=== PATIENT | male | born 1945 | race Caucasian/White ===

== ENCOUNTER → 2021-08-22 | Outpatient (CLI) | payer MEDICARE, OTHER ==
[~2021-08-22] VITALS: Ht 177 cm; Wt 88.0 kg
[~2021-08-22] MED LIST: REGADENOSON 0.4 MG/5 ML SYR (LEXISCAN) IV ONE
[2021-08-22] MEDS: CATHETER FLUSH 10 ML SYR IVP PRN ×2 (07:50→09:24)
[2021-08-22 09:15] VITALS: BP 127/66
--- NOTE | 2021-08-22 11:27 | Cardiology Stress Test Report ---
Stress Test Report Date of Procedure/Referring: Date of Procedure: Aug 22, 2021 PCP Bakari Gonzáles MD Admitting Physician Indications: CP Baseline Heart Rate: 53 Baseline Blood Pressure: Blood Pressure Systolic: 127 Blood Pressure Diastolic: 66 Baseline Vitals Vital Signs Date Time Temp Pulse Resp B/P (MAP) Pulse Ox O2 Delivery O2 Flow Rate FiO2 08/22/21 09:15 53 16 127/66 (86) 97 Room Air Baseline EKG: Baseline EKG: NSR Summary After explaining the procedure to the patient, he signed a consent and then brought to the stress nuclear laboratory. Patient received 0.4 mg Lexiscan for stress test, ECG, heart rate and blood pressure were monitored continuously. Resting and stress dose of radio tracer were injected, imaging was acquired and reviewed in short axis, horizontal long axis and vertical long axis views. TID: 1.16 SSS: 16 SDS: 3 EF: 51 1. Patient tolerated Lexiscan well 2. Decreased uptake involving the whole anterior wall anterior apex and true apex with mild reversibility suggestive of ischemia 3. Normal left ventricular size, hypokinesia of the anterior wall, EF 51% BAKARI GONZÁLES MD Aug 22, 2021 11:27
== END ==
LOC: CARD 08:30
PROVIDERS: ATTEND Internal Medicine Cardiovascular Disease
DX: I49.9 Cardiac arrhythmia, unspecified (principal); I25.10 Atherosclerotic heart disease of native coronary artery without angina pectoris; I10 Essential (primary) hypertension
CPT/HCPCS: 78452; 93017; 93225; 93226; A9502

== ENCOUNTER 2021-09-07 09:00 | Day surgery (SDC) | payer MEDICARE ==
[~2021-09-07] VITALS: Ht 177.8 cm; Wt 97.6 kg
[2021-09-07] VITALS (14 sets, daily range): BP systolic 118–143; BP diastolic 68–97
--- NOTE | 2021-09-07 07:46 | Diagnostic Imaging Report ---
EXAMINATION: Chest radiograph, portable AP view. DATE: 09/07/2021 7:37 AM INDICATION: 76-year-old female, preoperative exam. COMPARISON: None. FINDINGS: Heart size and mediastinal contours are unremarkable. There is no identified pneumothorax. There is no large pleural effusion. There are streaky opacities in the right perihilar region and right midlung. IMPRESSION: 1. Streaky opacities in the right perihilar region of the right midlung which may reflect scarring, atelectasis, and/or infiltrate. Consider CT chest with intravenous contrast for further assessment if comparison radiographs are not able to document stability. Dictated by: Dictated on workstation # [id number]
[2021-09-07 07:53] LABS: BILIRUBIN,URINE NEGATIVE (NEGATIVE); CLARITY,URINE CLEAR; COLOR,URINE YELLOW; GLUCOSE, URINE (UA) NEGATIVE (NEGATIVE); HEMATOCRIT 42 % (40-54); HEMOGLOBIN 13.5 g/dL (13.3-17.7); KETONES,URINE NEGATIVE (NEGATIVE); LEUKOCYTE ESTERASE ,URINE TRACE (NEGATIVE); MEAN CORPUSCULAR HEMOGLOBIN 29 pg (25-34); MEAN CORPUSCULAR HGB CONC 32 g/dL (32-36); MEAN CORPUSCULAR VOLUME 90 fL (80-99); MEAN PLATELET VOLUME 11.6 fL (9.0-12.2); NITRITE,URINE NEGATIVE (NEGATIVE); PLATELET COUNT 192 10^3/uL (130-400); PROTEIN,URINE NEGATIVE (NEGATIVE); WHITE BLOOD COUNT 6.3 10^3/uL (4.3-11.0)
[2021-09-07 08:16] LABS: BILIRUBIN,TOTAL 0.4 MG/DL (0.1-1.0); CALCIUM 9.5 MG/DL (8.5-10.1); CREATININE SERUM 0.76 MG/DL (0.60-1.30); POTASSIUM 4.2 MMOL/L (3.6-5.0); TOTAL PROTEIN 7.2 GM/DL (6.4-8.2)
[2021-09-07 08:24] LABS: INR 1.1 (0.8-1.4); PROTHROMBIN TIME PATIENT 14.5 SEC (12.2-14.7)
[2021-09-07 08:31] LABS: BACTERIA,URINE TRACE /HPF; SQUAMOUS EPITHELIAL CELL,UR 0-2 /HPF; WBC,URINE 0-2 /HPF
[~2021-09-07 09:00] MED LIST changes: +ACET-2650 PO; +ALLO300T2 PO; +APIX5TAB PO; +COLC0.6T59 PO; +DILT240C90 PO; +FEXO180T84 PO; +HEParin (CATH LAB) 2,000 ML IV ONE; +HEParin 1000 UNIT/ML (10ML VIAL) FOR BOLUS ONE; +LEVO125C4 PO; +LIDOCAINE 1% INJ 50 ML (XYLOCAINE) VIAL ONE; +LISI10TA25 PO; +METF-397 PO; +MIDAZOLAM 5 MG/5 ML (VERSED) VIAL ONE; +NITRO DRIP 25000 MCG/D5W 250 ML IV ONE; +NS IV 1000 ML 1,000 ML IV SCH; +NS IV 1000 ML 1,000 ML ONE; -REGADENOSON 0.4 MG/5 ML SYR (LEXISCAN) IV ONE; +ROSU10TA28 PO; +TERA2CAP4 PO; +VERAPAMIL 5 MG/2 ML (CALAN) VIAL IV ONE; +fentaNYL INJ 100 MCG/2 ML AMP ONE
--- NOTE | 2021-09-07 09:15 | Conscious Sedation/ASA ---
Conscious Sedation Pre-Proced Time 09:15 ASA Score 3 For ASA 3 and 4: Consider anesthesia and medical clearance. Also, for patients with a history of failed moderate sedation consider anesthesia. Airway Lungs Heart ASA score ASA 1: a normal healthy patient ASA 2: a patient with a mild systemic disease (mid diabetes, controlled hypertension, obesity x ASA 3: a patient with a severe systemic disease that limits activity (angina, COPD, prior Myocardial infarction) ASA 4: a patient with an incapacitating disease that is a constant threat to life (CHF, renal failure) ASA 5: a moribund patient not expected to survive 24 hrs. (ruptured aneurysm) ASA 6: a declared brain- patient whose organs are being harvested. For emergent operations, add the letter E after the classification Mallampati Classification Grade 3 Sedation Plan Analgesia, Amnesia, Plan communicated to team members, Discussed options with patient/fam, Discussed risks with patient/fam The patient is an appropriate candidate to undergo the planned procedure, sedation, and anesthesia. The patient immediately re-assessed prior to indication. BAKARI GOODWIN MD Sep 07, 2021 09:15
[2021-09-07] MEDS ORDERED: NS IV 1000 ML 1,000 ML IV SCH (09:45)
--- NOTE | 2021-09-07 09:47 | Cardiac Cath Report ---
Cardiac Cath Report Physician (s)/Building Energy Retrofit Technician (s) Physician BAKARI GOODWIN MD Pre-Procedure Diagnosis Pre-Procedure Diagnosis: Coronary artery disease Post-Procedure Note Procedure Start Date: Sep 07, 2021 Name of Procedure: Left heart catheterization Aortic arch angiogram Findings/Procedure Note PROCEDURE NOTE: 76-year-old gentleman with history of hypertension, hyperlipidemia and atrial fibrillation, had an abnormal stress test, scheduled for cardiac catheterization possible PTCA. After explaining the procedure to the patient, all pros and cons were explained, all questions were answered. The patient signed the consent and then he was placed on the cardiac catheterization laboratory. Groin was prepped SL fashion local anesthesia was used. Sheath placed in the right radial artery, Beauty catheter was advanced to the left ventricular cavity, pressure was measured, pullback LV to aorta was done, engaged the right and left coronary system, angiogram was done. Patient has severe multivessel coronary artery disease, I decided to proceed with aortic arch angiogram prior to referring him for evaluation for bypass surgery At the end of the procedure the sheath was removed. Vascular band was used FINDINGS: Hemodynamics LV 115/13, end-diastolic pressure of 13 Aorta 112/54 mean of 76 ANATOMY: Left Main is free of obstructive disease Left Anterior Descending has severe stenosis at the midportion with aneurysmal dilatation then total occlusion of the LAD is getting filled by collaterals from the left and right coronary system. Diagonal artery has severe stenosis Left Circumflex is moderate in size, has severe stenosis at the mid to distal portion, the obtuse marginal branch has severe ostial stenosis Right Coronary Artery is large dominant artery with severe distal stenosis, the right or artery is giving collaterals to the left system LV Gram was not done, pressure was measured Aorta evaluation done with aortic arch angiogram showing normal aortic arch, no dissection or aneurysm, slightly tortuous brachiocephalic and left carotid artery with no obstructive disease, normal left subclavian artery. CONCLUSION: 1. Severe multivessel coronary artery disease with total occlusion of the mid LAD getting collaterals from the right and the left system. 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 Severe stenosis at the mid to distal circumflex artery and ostial first obtuse marginal branch and severe stenosis at the distal dominant right coronary artery. 2. Patient is known to have ejection fraction 50%, normal left ventricular end- diastolic pressure 3. Normal aortic arch with slightly tortuous brachiocephalic artery and left carotid with no obstructive disease DISCUSSION AND RECOMMENDATION: Continue to maximize medical therapy, arrangement for evaluation for bypass surgery Hospital course: Patient will be admitted and arrangement to transfer for bypass surgery, I discussed with Dr. Wolfe. Final diagnoses Coronary artery disease Hypertension Hyperlipidemia Paroxysmal atrial fibrillation Anesthesia Type: Conscious Sedation Estimated blood loss (mL): 10 ml Contrast Amount: 55 ml Total Radiation Dose: 607 mGy Post-Procedure Diagnosis Post-operative diagnosis: Chest pain Coronary artery disease Hypertension Hyperlipidemia BAKARI GOODWIN MD Sep 07, 2021 09:47
--- NOTE | 2021-09-07 10:08 | Discharge Inst-Post CATH ---
Discharge Inst-CATH/EP Problems Reviewed?: Yes Post Cardiac Cath/EP D/C Inst Follow Up/Plan Appointment with Dr. Gonzáles's office in 2 to 4 weeks <b>CARDIAC CATH/EP PROCEDURE DISCHARGE INSTRUCTIONS</b> ACTIVITY * Go Home directly and rest. * Limit activity of the leg (or wrist if it was used) for 7 days including aer obics, swimming, jogging, bicycling, etc. * Restrict stair-climbing for 7 days if possible, if not, climb up with your non-cath leg, then bring together on the same step. * Avoid lifting, pushing, pulling or excessive movement of the affected extremi ty for 7 days. * Customary sexual activity may be resumed after 2 days-use caution not to use a position that strains or causes pain to the affected extremity. * No driving for 24 hours. * NO SMOKING. * Avoid straining for bowel movements for 7 days. * Gentle walking on level ground is allowed. * Returning to work will depend on the type of procedure and the results. Your doctor will discuss this with you. CALL YOUR DOCTOR FOR ANY OF THE FOLLOWING: *If bleeding from the puncture site occurs- Apply gentle pressure to site with clean cloth and call your doctor or EMS. * If a knot or lump forms under the skin, increases in size, or causes pain. * If bruising appears to be worsening or moving further down your leg instead of disappearing. * Temperature above 101 F. CARE OF YOUR GROIN INCISION; * Bruising or purple discoloration of the skin near the puncture site is common. * You may shower only, no bathtub bathing for 5 days. Be careful to avoid slipping as your leg may feel stiff. * If a closure device was used on your femoral artery, please see the attached guide regarding care of the device and your leg. * Leave dressing on FOR 24 hours. CARE OF YOUR WRIST INCISION; * Bruising or purple discoloration of the skin near the puncture site is common. * You may shower. * DO NOT submerge wrist. * Leave dressing on FOR 24 hours. BAKARI GONZÁLES MD Sep 07, 2021 10:08
[2021-09-07] MEDS ORDERED: ROSU5TAB13 PO (10:18)
--- NOTE | 2021-09-07 12:23 | Tele-ICU Consult ---
History of Present Illness History of Present Illness Date Seen by Provider: Sep 07, 2021 Time Seen by Provider: 12:20 History of Present Illness 76 yo M came from [facility] found to have severe disease in LCx, RCA and LAD, being referred for CABG Allergies and Home Medications Allergies Coded Allergies: No Known Drug Allergies (Unverified , 08/22/21) Home Medications Acetaminophen 650 Mg Tablet.er, 650-1,300 MG PO Q8H PRN for PAIN-MILD (1-4), (Reported) Allopurinol 300 Mg Tablet, 300 MG PO DAILY PRN for GOUT, (Reported) Apixaban 5 Mg Tablet, 5 MG PO BID, (Reported) Colchicine 0.6 Mg Tablet, 0.6 MG PO DAILY PRN for GOUT, (Reported) Diltiazem HCl 240 Mg Cap.er.24h, 240 MG PO DAILY, (Reported) Fexofenadine HCl 180 Mg Tablet, 180 MG PO HS, (Reported) Levothyroxine Sodium 125 Mcg Capsule, 125 MCG PO DAILY, (Reported) Lisinopril 10 Mg Tablet, 10 MG PO DAILY, (Reported) Metformin HCl 500 Mg Tablet, 500 MG PO BID, (Reported) Rosuvastatin Calcium 5 Mg Tablet, 5 MG PO HS, (Reported) Terazosin HCl 2 Mg Capsule, 2 MG PO HS, (Reported) Past Medical/Social/Family Hx Current Status Communicates: Verbally Primary Language: Austrian Review of Systems Constitutional: see HPI EENTM: see HPI Respiratory: see HPI Cardiovascular: see HPI Gastrointestinal: see HPI Genitourinary: see HPI Musculoskeletal: see HPI Skin: see HPI Psychiatric/Neurological: See HPI Focused Exam Height, Weight, BMI Height: '" Weight: lbs. oz. kg; 30.87 BMI Method: Exam Exam Patient acknowledged, consented, and participated in this virtual visit which was conducted using real time audio/video Vital Signs Date Time Temp Pulse Resp B/P (MAP) Pulse Ox O2 Delivery O2 Flow Rate FiO2 09/07/21 11:45 47 5 139/73 (95) 99 Room Air 09/07/21 11:40 36.2 09/07/21 11:30 48 14 134/72 (92) 98 Room Air 09/07/21 11:15 46 14 120/97 (105) 99 09/07/21 11:11 Room Air 09/07/21 11:00 53 10 127/74 (91) 98 09/07/21 10:45 59 33 129/74 (92) 98 09/07/21 10:30 56 30 130/70 (90) 97 09/07/21 10:23 54 09/07/21 10:15 130/75 (93) 09/07/21 07:47 36.4 70 18 131/80 (97) 96 Room Air Height & Weight Height: '" Weight: lbs. oz. kg; 30.87 BMI Method: General Appearance: No Apparent Distress Respiratory: Lungs Clear Cardiovascular: Regular Rate, Rhythm, No Edema Capillary Refill: Less Than 3 Seconds Gastrointestinal: normal bowel sounds, non tender Results Lab Laboratory Tests 09/07/21 07:40 Assessment/Plan Assessment/Plan 76 yo M came from [facility] found to have severe disease in LCx, RCA and LAD, being referred for CABG Critical Care: Critically Ill Patient Time spent with patient (mins): 20 JERRI GONZALEZ MD Sep 07, 2021 12:23
== END 2021-09-07 15:24 | disposition short-term general hospital (02) ==
LOC: CATH 09:00 → ICU 10:15 → CATH 15:24
PROVIDERS: ATTEND Internal Medicine Cardiovascular Disease
DX: I25.10 Atherosclerotic heart disease of native coronary artery without angina pectoris (principal); I10 Essential (primary) hypertension; E78.5 Hyperlipidemia, unspecified; I48.0 Paroxysmal atrial fibrillation; R53.1 Weakness; B91 Sequelae of poliomyelitis; E11.9 Type 2 diabetes mellitus without complications; E03.9 Hypothyroidism, unspecified; I65.23 Occlusion and stenosis of bilateral carotid arteries; I49.9 Cardiac arrhythmia, unspecified; Z79.890 Hormone replacement therapy; Z79.84 Long term (current) use of oral hypoglycemic drugs; Z79.01 Long term (current) use of anticoagulants
CPT/HCPCS: 36221; 71045; 80053; 80061; 81000; 85027; 85610; 85730; 87081; 93005; 93458; C1894; 36415

== ENCOUNTER → 2022-04-18 | Outpatient (CLI) | payer MEDICARE ==
[~2022-04-18] MED LIST changes: -HEParin (CATH LAB) 2,000 ML IV ONE; -HEParin 1000 UNIT/ML (10ML VIAL) FOR BOLUS ONE; -LIDOCAINE 1% INJ 50 ML (XYLOCAINE) VIAL ONE; -MIDAZOLAM 5 MG/5 ML (VERSED) VIAL ONE; -NITRO DRIP 25000 MCG/D5W 250 ML IV ONE; -NS IV 1000 ML 1,000 ML IV SCH; -NS IV 1000 ML 1,000 ML ONE; +ROSU5TAB13 PO; -VERAPAMIL 5 MG/2 ML (CALAN) VIAL IV ONE; -fentaNYL INJ 100 MCG/2 ML AMP ONE
== END ==
LOC: CARD 13:00
PROVIDERS: ATTEND Physician Assistant
DX: I08.2 Rheumatic disorders of both aortic and tricuspid valves (principal); I11.9 Hypertensive heart disease without heart failure; I25.10 Atherosclerotic heart disease of native coronary artery without angina pectoris
CPT/HCPCS: 93306

== ENCOUNTER → 2022-11-15 | Outpatient (CLI) | payer MEDICARE ==
[~2022-11-15] MED LIST changes: +CATHETER FLUSH 10 ML SYR IVP PRN; +REGADENOSON 0.4 MG/5 ML SYR (LEXISCAN) IV ONE
[2022-11-15 12:34] VITALS: BP 163/77
--- NOTE | 2022-11-15 15:44 | Cardiology Stress Test Report ---
Stress Test Report Date of Procedure/Referring: Date of Procedure: Nov 15, 2022 PCP Amanda Chong MD Admitting Physician Admitting Physician: Attending Physician: Linda Hansen Baseline Heart Rate: 54 Baseline Blood Pressure: Blood Pressure Systolic: 163 Blood Pressure Diastolic: 77 Baseline Vitals Vital Signs Date Time Temp Pulse Resp B/P (MAP) Pulse Ox O2 Delivery O2 Flow Rate FiO2 11/15/22 12:34 54 163/77 (105) Baseline EKG: Baseline EKG: NSR Summary After explaining the procedure to the patient, he signed a consent and then brought to the stress nuclear laboratory. Patient received 0.4 mg Lexiscan for stress test, ECG, heart rate and blood pressure were monitored continuously. Resting and stress dose of radio tracer were injected, imaging was acquired and reviewed in short axis, horizontal long axis and vertical long axis views. TID: 1 SSS: 8 SDS: 3 EF: 48 Patient tolerated Lexiscan well Breast attenuation with fixed defect at the apex, reversible ischemia at the anterior apical segment and mid to apical inferior wall Normal left ventricular size with hypokinesia at the apex, ejection fraction 49% CC BAKARI Castellanos MD Nov 15, 2022 15:44
== END ==
LOC: CARD 09:58
PROVIDERS: ATTEND Physician Assistant
DX: I48.0 Paroxysmal atrial fibrillation (principal)
CPT/HCPCS: 78452; 93017; A9502